=== PATIENT | male | born 1940 | race Caucasian/White ===

== ENCOUNTER 2020-02-19 00:16 | Inpatient (IN) | payer MEDICARE, BC, OTHER ==
[2020-02-19] MEDS ORDERED: Dextrose 5% in Water 1,000 ML IV PRN (00:55)
[2020-02-19] MEDS ORDERED: Ondansetron PF 4 MG/2 ML Vial IVP PRN (00:55)
[2020-02-19] MEDS ORDERED: Dextrose 50% Abboject 50 ML SYRINGE SLOW IVP PRN (00:55)
[2020-02-19] MEDS ORDERED: Acetaminophen 500 MG TAB PO PRN (01:00)
[2020-02-19 01:56] LABS: PTT 32.8 sec (22.9-36.1); Prothrombin Time 13.5 sec (12.0-14.7)
[2020-02-19 02:00] LABS: Phosphorus 2.2 mg/dL (2.3-4.7)
[2020-02-19] MEDS ORDERED: Sodium Chloride 0.9% 1,000 ML IV SCH ×2 (02:00→03:15)
[2020-02-19 02:07] LABS: #Basophils 0.1 thou/uL (0.0-0.2); #Eosinphils 0.1 thou/uL (0.0-0.7); #Lymphocytes 1.7 thou/uL (1.20-3.40); #Monocytes 0.3 thou/uL (0.11-0.59); #Neutrophils 6.1 thou/uL (1.40-6.50); %Basophils 0.8 % (0.0-1.0); %Lymphocytes 20.6 % (21.0-51.0); %Monocytes 3.8 % (0.0-10.0); %Neutrophils 73.8 % (42.0-75.0); Hemoglobin 18.1 g/dL (14.0-18.0); Mean Corpuscular HGB CONC 32.8 g/dL (32.0-36.0); Mean Corpuscular Hemoglobin 31.9 pg (27.0-31.0); Mean Corpuscular Volume 97.2 fL (78.0-98.0); Mean Platelet Volume 9.1 fL (7.4-10.4); Platelet Count 129 thou/uL (130-400); Red Blood Cell (RBC) Count 5.69 mill/uL (4.70-6.10); White Blood Cell (WBC) Count 8.2 thou/uL (4.8-10.8)
[2020-02-19 02:08] LABS: Alcohol 164 mg/dL (Less than 10); Anion Gap 18 mmol/L (10-20); BUN (Urea Nitrogen) 16 mg/dL (8.4-25.7); Calc. Creatinine Clearance 0 mL/min (70-130); Calcium 9.3 mg/dL (7.8-10.44); Carbon Dioxide 24 mmol/L (23-31); Chloride 102 mmol/L (98-107); Estimated GFR-MDRD 77; Glucose 119 mg/dL (83-110); Magnesium 2.1 mg/dL (1.6-2.6); Potassium 3.7 mmol/L (3.5-5.1); Sodium 140 mmol/L (136-145)
[2020-02-19 02:30] LABS: CKMB 3.2 ng/mL (0-6.6)
[2020-02-19 03:20] VITALS: BMI 28.0
[2020-02-19 04:18] VITALS: TEMP 97.4
--- NOTE | 2020-02-19 04:59 | HP ---
REQUESTING PHYSICIAN: Viviane Araujo MD PRIMARY CARE PHYSICIAN: Royer Spaulding MD ATTENDING: Dr. Torres. CONSULTS: Neurosurgery, Dr. Rajput. CHIEF COMPLAINT: Mechanical fall. HISTORY OF PRESENT ILLNESS: This is a 79-year-old gentleman who reports standing up and being unsteady and falling forward. The patient did have a loss of consciousness. He denies feeling weak, dizzy short of breath or having chest pain before and after falling. The patient originally was evaluated at [facility]. It was reported there the patient drinks socially every 3 to 4 days, approximately 2 to 3 drinks of liquor. The patient's blood alcohol at [facility] was 199. The patient denied any alcohol use or ever using alcohol when his was at the bedside. The patient's GCS is currently 15. The patient does complain of back pain and which is chronic. He continues to deny chest pain, shortness of breath or dizziness. The patient was transferred to [facility] for definitive care with Neurosurgical Services. The patient does take Eliquis daily. The patient seen by Dr. Osborne on 02/14/20 for palpitation and atrial flutter in which he had an ablation done. The patient also had a transesophageal echocardiogram the same day showing no clots in left atrium. The patient did have moderate dilation of the left atrium and his ejection fraction was 65%. The patient was found to have a small left subdural hematoma on CT scan. Trauma Services was asked to admit the patient. REVIEW OF SYSTEMS: A 10-point review of systems is negative unless otherwise indicated in the above HPI. ALLERGIES: SULFA. CURRENT MEDICATIONS: 1. Valsartan-hydrochlorothiazide 160 mg-12.5 mg. 2. Amlodipine 5 mg. 3. Propranolol 40 mg 3 times a day. 4. Eliquis 5 mg two times a day. 5. Claritin 5 mg daily. PAST MEDICAL HISTORY: Hyperlipidemia, hypertension, arrhythmia, atrial flutter, and shingles nerve pain since August of 2016. PAST SURGICAL HISTORY: Denies. SOCIAL HISTORY: Denies alcohol use, although his blood alcohol was 199 at [facility] and 164, repeat here at [facility]. Denies illicit drug use, previously smoked years ago at age 19 to 38. The patient lives at home with his . PHYSICAL EXAMINATION: VITAL SIGNS: Pulse 45, SpO2 of 97% on room air, respirations 18, blood pressure 147/83, and temperature 97.6. GENERAL: Elderly male, flush appearing face, awake, alert, in no distress. HEENT: Normocephalic, flushed, abrasion to the bridge of nose, no bleeding, nasal exam normal, oropharynx clear, mucous membranes moist, no carotid bruits, no cervical spine tenderness, normal range of motion of neck, pupils are equal bilateral, extraocular muscles intact. RESPIRATORY: Equal chest rise and fall, bilateral breath sounds clear, no wheezing, rales, or rhonchi. CARDIOVASCULAR: Bradycardic, regular, no pedal edema. ABDOMEN: Soft, nontender, and nondistended, no peritoneal signs, pelvis is stable. EXTREMITIES: Moves all extremities, neurovascularly intact x4, no obvious injuries, strength 5/5. NEUROLOGIC: No focal deficits. GCS 15. LABORATORY DATA: WBC 8.2, RBC 5.69, hemoglobin 18.1, hematocrit 55.3, and platelets 129. Sodium 140, potassium 3.7, chloride 102, BUN 16, creatinine 0.94, estimated GFR 77, glucose 119, calcium 9.3, phosphorus 2.2, and magnesium 2.1. CK 129, CK-MB 3.2, troponin is indeterminate at 0.062, slightly elevated from previous drawn at [facility]. BNP 118.9. PT 13.5, INR 1.0, and APTT 32.8. Plasma alcohol 164, was previously 199. DIAGNOSTIC STUDIES: A 12-lead EKG, sinus bradycardia with first degree AV block, with no T-wave or ST-segment abnormalities. ASSESSMENT: 1. Status post mechanical fall. 2. Small left hematoma with small left to right shift. 3. Nose abrasion. 4. Bradycardia, nonsymptomatic. 5. Hypophosphatemia. 6. Indeterminate troponins, likely demand ischemia. 7. Acute alcohol intoxication. 8. History of atrial flutter with recent ablation on 02/14/2020, hypertension, and hyperlipidemia. PLAN: Admit to the intermediate care unit. Clear liquid diet as tolerated. Head of bed elevated at 30 degrees at all times, q.2 hours neuro checks. Neurosurgery plans to repeat head CT in the morning or sooner if change in GCS more than 2 points. We will replace electrolytes. Gentle IV maintenance fluids. Continuous cardiac monitoring as the patient is bradycardic. The patient is not symptomatic. Hold Eliquis. The plan was discussed with the patient and who agrees. The plan will be discussed with the attending after this dictation. Job ID: [id number] MTDD
[2020-02-19] MEDS ORDERED: Oxazepam 10 MG CAP PO SCH (06:00)
[2020-02-19] MEDS ORDERED: Amlodipine 5 MG TAB PO SCH (09:00)
[2020-02-19] MEDS ORDERED: Folic Acid/Vit B Comp W-C PO SCH (09:00)
[2020-02-19] MEDS ORDERED: Valsartan 80 MG TAB PO SCH (09:00)
[2020-02-19] MEDS ORDERED: Thiamine 100 MG TAB PO SCH (09:00)
[2020-02-19] MEDS ORDERED: Hydrochlorothiazide 25 MG TAB PO SCH (09:00)
[2020-02-19] MEDS ORDERED: Famotidine 20 MG TAB PO SCH (09:00)
--- NOTE | 2020-02-19 15:49 | DIS ---
DATE OF ADMISSION: 02/19/2020 DATE OF DISCHARGE: 02/19/2020 Patient left AMA February 19, 2020. ADMISSION DIAGNOSES: Mechanical fall on Eliquis, small subdural hematoma, nose abrasion and acute alcohol intoxication. DISCHARGE DIAGNOSES: Mechanical fall on Eliquis, small subdural hematoma, nose abrasion and acute alcohol intoxication. CONSULT PHYSICIANS: Dr. Rajput. PROCEDURES: None. HOSPITAL COURSE: The patient is a 79-year-old male who presented to the [facility] ER after a mechanical fall at home. The patient was intoxicated. He was found to have a small left subdural hemorrhage and was transferred to the [facility] as there is no neurosurgery coverage at the [facility]. His GCS remained 14 the entire time. Upon arrival to our facility, the patient became increasingly annoyed with the staff. He did report that he wanted to leave. His family was contacted. The patient refused care. He refused receiving any additional CTs. A morning CT scan was ordered by Dr. Rajput's team for reevaluation of the subdural hemorrhage. At the time the patient signed out AMA, his GCS was 15 and his family came to pick him up. Dr. Mendoza and Humphrey were rounding in the ICU during the morning and when we arrived at his bedside, the patient had already left AMA. Dr. Rajput's team was updated. Job ID: [id number]
[2020-02-20 12:11] LABS: SARS-CoV-2 MS2 Positive; SARS-CoV-2 N Gene Negative; SARS-CoV-2 S Gene Negative; SARS-CoV-2 by NAA Not Detected (NotDetected); SARS-CoV-2 orf1ab Negative
--- NOTE | 2020-02-22 04:03 | PQF ---
CLINICAL DOCUMENTATION CLARIFICATION FORM: Dear : Haley Cullen Date / Time: 02/22/2020 0404 Please exercise your independent, professional judgment in responding to the clarification form. Clinical indicators are provided on the bottom of this form for your review Please check appropriate box(es): Traumatic Subdural hematoma with Loss of Consciousness Duration: [ ] Loss of consciousness (30 min or less) [ ] Loss of consciousness (31 min to 59 min) [ ] Loss of consciousness (1 hour to 5 hours 59 min) [ ] Loss of consciousness (6 hours to 24 hours) [ ] Loss of consciousness Unspecified duration [ ] Other diagnosis,please specify: [ X ] Unable to determine Physician Signature: Date/Time: For continuity of documentation, please document condition throughout progress notes and discharge summary. Thank You. To be completed by CDI/Coding staff for physician review: Present Clinical Indicators - Signs / Symptoms / Labs Results and Location in Medical Record [X] BP 146/76, Pulse 51, Resp 12, Temp 97.7 Vital signs 02/18 [X] Alcohol plasma 164 Laboratory 02/18 [X] GCS : M6, V5, E3 Neurological panel 02/18 [X] Reports standing ip and being unsteady and falling forward H&P p1 Ponzio IGNITION EXPERT-BC 02/18 [X] The pt did have a loss of consciousness H&P p1 Ponzio IGNITION EXPERT-BC 02/18 [X] s/p with Small left hematoma with small left to right shift H&P p3 Ponzio IGNITION EXPERT-BC 02/18 Present Risk Factors Results and Location in Medical Record [X] 79 year-old Male H&P p1 Ponzio IGNITION EXPERT-BC 02/18 [X] HTN H&P p2 Ponzio IGNITION EXPERT-BC 02/18 [X] s/p of Atrial flutter H&P p2 Ponzio IGNITION EXPERT-BC 02/18 [X] Former Smoker H&P p2 Ponzio IGNITION EXPERT-BC 02/18 [X] Acute alcohol intoxication H&P p3 Ponzio IGNITION EXPERT-BC 02/18 [X] Subdural hematoma H&P p3 Ponzio IGNITION EXPERT-BC 02/18 Present Treatments Results and Location in Medical Record [X] Serax 10 mg oral MAR 02/18 [X] IVF NS 1L MAR 02/18 [X] Thiamin 100 mg oral MAR 02/18 [X] Neurocheck q2 H&P p3 Roselia IGNITION EXPERT- 02/18 CDS/Market Researcher Signature: Bev Prajapati Phone #: ext [phone] Date/Time: 02/22/2020 0402 This is a permanent part of the Medical Record [facility]
== END 2020-02-19 08:30 | disposition left against medical advice (07) | DRG 83 ==
LOC: ERS 00:16 → IMCU/EMU 03:04
PROVIDERS: ADMIT Surgery; ATTEND Surgery
DX: S06.5X9A Traumatic subdural hemorrhage with loss of consciousness of unspecified duration, initial encounter (principal); I24.8 Other forms of acute ischemic heart disease; S00.31XA Abrasion of nose, initial encounter; Z20.828 Contact with and (suspected) exposure to other viral communicable diseases; F10.129 Alcohol abuse with intoxication, unspecified; Y90.6 Blood alcohol level of 120-199 mg/100 ml; R40.2362 Coma scale, best motor response, obeys commands, at arrival to emergency department; R40.2132 Coma scale, eyes open, to sound, at arrival to emergency department; R40.2252 Coma scale, best verbal response, oriented, at arrival to emergency department; E78.5 Hyperlipidemia, unspecified; I10 Essential (primary) hypertension; I48.91 Unspecified atrial fibrillation; W18.30XA Fall on same level, unspecified, initial encounter; R00.1 Bradycardia, unspecified; E83.39 Other disorders of phosphorus metabolism; Z79.899 Other long term (current) drug therapy; Z79.01 Long term (current) use of anticoagulants; Z88.2 Allergy status to sulfonamides; Z87.891 Personal history of nicotine dependence
CPT/HCPCS: 36415; 80048; 80307; 82550; 82553; 83735; 83880; 84100; 84484; 85025; 85610; 85730; 87635; U0003

== ENCOUNTER 2020-04-21 14:59 | Outpatient (CLI) | payer MEDICARE, BC ==
--- NOTE | 2020-04-21 15:23 | CT ---
CT HEAD WITHOUT IV CONTRAST COMPARISON: 02/18/2020 HISTORY: Follow-up subdural hematoma. TECHNIQUE: Axial CT imaging at 5 mm intervals from vertex through skull base without contrast FINDINGS: There has been interval enlargement of the left subdural hemorrhage which demonstrates mixed attenuat ion on this examination. Greatest transverse dimension on today's examination is 1.5 cm, in greatest transverse dimension the prior study was 0.5 cm. There is now mass effect on the left cerebr al hemisphere with sulcal effacement and mild shift the midline structures to the right measuring 0.4 cm. There is mild effacement of the occipital horn left lateral ventricle. No acute cortical infarction is seen. Areas of diminished attenuation are scattered in the periventr icular white matter which are nonspecific but again likely reflective of chronic small vessel ischemic changes. Mastoid air cells are clear. Trace mucosal thickening is scattered in the ethmoidal air cells and sphenoid sinus. Osseous structures appear intact.No calvarial fracture is seen. IMPRESSION: Interval increase in size of left subdural hematoma with greatest transverse dimension measure 1.5 cm increased from a size of 0.5 cm. There is now mass effect on the left cerebral hemisphere with shift of the midline structures to the right measuring approximately 0.4 cm. These findings were relayed to Sunita Murphy neurosurgery PA by nurse Amber in the operating room o n 04/21/2020 at 1519 hours
== END 2020-04-21 15:00 | disposition home or self-care (01) ==
LOC: BICCT 14:59
PROVIDERS: ATTEND Surgery
DX: S06.5X9A Traumatic subdural hemorrhage with loss of consciousness of unspecified duration, initial encounter (principal)
CPT/HCPCS: 70450